=== PATIENT | female | born 1980 | race Hispanic/Latino ===

== ENCOUNTER 2020-01-10 10:59 | Day surgery (SDC) | payer OTHER ==
[2020-01-10] MEDS ORDERED: Ringers Lactate 1,000 ML IV ONE (11:37)
[2020-01-10] MEDS ORDERED: BUPIVACA 0.25%/EPI 0.0005% MDV 50 ML VIAL ONE (11:39)
[2020-01-10] MEDS ORDERED: MIDAZOLAM HCL 2 MG/2 ML INJ ONE (11:55)
[2020-01-10] MEDS ORDERED: propofoL 200 MG/20 ML VIAL IV ONE (11:55)
[2020-01-10] MEDS ORDERED: LIDOCAINE 1% MPF 5 ML VIAL ONE (11:55)
[2020-01-10] MEDS ORDERED: ROCURONIUM 50 MG/5 ML VIAL IV ONE (11:55)
[2020-01-10] MEDS ORDERED: FENTANYL CITR 100 MCG/2 ML ONE ×2 (11:55→12:50)
[2020-01-10] MEDS ORDERED: CEFOXITIN/SWI 2gm 2 GM/20 ML SYR IV ONE (12:00)
[2020-01-10] MEDS ORDERED: dexAMETHasone 10 MG/ML VIAL ONE (12:59)
[2020-01-10] MEDS ORDERED: KETOROLAC 30 MG/ML INJ ONE (12:59)
[2020-01-10] MEDS ORDERED: NA CHLORIDE 0.9% 1,000 ML ONE (13:51)
[2020-01-10] MEDS ORDERED: ONDANSETRON 4 MG/2 ML VIAL ONE (13:54)
[2020-01-10] MEDS ORDERED: GLYCOPYRROLATE 0.2 MG/ML SYR ONE (13:55)
[2020-01-10] MEDS ORDERED: MEPERIDINE HCL 25 MG/ML SYR ONE (14:03)
[2020-01-10] MEDS ORDERED: NEOSTIGMINE 1 MG/ML -5 ML ONE (14:03)
--- NOTE | 2020-01-10 14:08 | P.OP ---
Preoperative diagnosis: Cholecystitis with cholelithiasis Postoperative diagnosis: Cholecystitis with cholelithiasis Primary procedure: Laparoscopic Cholecystectomy Anesthesia: GETA + Local Estimated blood loss: <5cc Specimen: Galllbadder Findings: Grossly inflammed GB, stone impacted in neck, encased in inflammatory rind Complications: None Transferred to: Recovery Room Condition: Good
[2020-01-10] MEDS: HYDROMORPHONE HCL 1 MG/ML INJ ONE ×2 (14:45→14:50)
[2020-01-10] MEDS ORDERED: PROMETHAZINE INJ 25 MG/ML AMP ONE (14:59)
[2020-01-10] MEDS ORDERED: HYDROCODONE/APAP 5/325 MG TAB PO ONE (15:30)
[2020-01-10] MEDS ORDERED: HYDROCODONE/APAP 5/325 MG TAB ONE (15:38)
[2020-01-10 16:17] VITALS: BP 118/73; TEMP 97.5; O2SAT 100
--- NOTE | 2020-01-10 23:58 | OP ---
Date of Procedure: 01/10/2020 Surgeon: Torres De La Cruz MD, Preoperative Diagnosis: Cholecystitis with cholelithiasis. Postoperative Diagnosis: Cholecystitis with cholelithiasis. Procedure Performed: Laparoscopic cholecystectomy. Anesthesia: General endotracheal plus local 0.25% Marcaine with epinephrine. Estimated Blood Loss: Less than 5 mL. Specimen: Gallbladder. Findings: 1.Grossly inflamed gallbladder. 2.Gallbladder encased in inflammatory rind with omentum and attached over the anterior surface. 3.Patient had omental attachments to the anterior abdominal wall and consistent with adhesions from previous surgery. 4.Stone impacted in the gallbladder neck. Complications: None, transferred to recovery room in good condition. Procedure In Detail: After informed consent obtained, patient was brought to the operating room, pre pped and draped in the usual sterile fashion. After adequate anesthesia achieved, supraumbilical are a was anesthetized with 0.25% Marcaine, sharply incised. A 5 mm 0-degree optical trocar was introduc ed in the abdomen without evidence of complication. Insufflation was obtained to 15 mmHg at this ji e. There was no injury to any vital structures upon entry of the abdomen. The gallbladder was inspe cted at this point and found to be completely encased in omentum by visualization. Three additional trocars placed, one in the epigastrium, two in the right upper quadrant. This was similarly anesthet ized and sharply incised. A 5 mm trocars were introduced in the abdomen without evidence of complica tion. The umbilical trocar was then up-sized to a 12 mm under direct visualization without evidence of complication. Patient positioned head up right-side up position. Ratcheted grasper was used to g rasp the patient's omentum and teased off the anterior surface of the gallbladder using a combination of electrocautery and blunt dissection. Careful meticulous dissection was required to take the omen maritza off the gallbladder anterior surface. After this was performed, meticulous dissection was used t o down the Jody pouch where an impacted stone was appreciated in the neck of the gallbladder. Mu ltiple attempts to mobilize the stone were unsuccessful and as such, the gallbladder was decompressed and attempts were slightly improved, but the stone remained in the neck of the gallbladder, but did give a small amount of leeway. At this point, I was able to dissect around the cystic duct and cysti c artery. The critical view of safety was obtained at this point, identifying only 2 structures ente ring the gallbladder. These were identified as the cystic artery. After this was performed, I skraffy tonized these structures clearly and placed double titanium clips on the proximal side and singly on the distal side of both the cystic duct and cystic artery. There was good apposition of the clips at this point and the gallbladder was removed the hepatic fossa without evidence of complication. The gallbladder was then placed into an EndoCatch bag and removed the umbilical trocar, sent off for path ologic examination. The abdomen was then re-insufflated. The area was copiously irrigated multiple times and completely clear and the subhepatic space was irrigated multiple times. This was completel y clear effluent. No evidence of bile leak. No evidence of bleeding. Clips were found to be in goo d anatomic position. The area was inspected. There was a good rim of normal cystic duct on the dist al aspect, as such the patient was positioned back in a neutral position and the remaining of the eff luent was suctioned out over the hepatic space and the umbilical trocar was removed. The umbilical t rocar site was closed using a Irving-Mari suture passer with 0 Vicryl in interrupted fashion. Go od approximation of tissues. The abdomen was completely desufflated under direct visualization witho ut complication. All skin incisions copiously irrigated and closed with a 4-0 Monocryl in a running fashion. Dermabond placed over top. The patient tolerated the procedure well without evidence of co mplication, and transferred to the PACU in good condition. All counts were correct at the end of case. RADHA/JONH Voice ID: [id number] Report ID: [id number]
== END 2020-01-10 16:25 | disposition home or self-care (01) ==
LOC: OR 10:59
PROVIDERS: ATTEND Surgery
PROC: 0FT44ZZ Resection of Gallbladder, Percutaneous Endoscopic Approach (ICD-10-PCS; principal; 2020-01-10 12:00)
DX: K80.10 Calculus of gallbladder with chronic cholecystitis without obstruction (principal); Z11.59 Encounter for screening for other viral diseases
CPT/HCPCS: 81025; 88304; 47562; J2704; J2550; J2250; J3010 ×2; J1100; J2175; J1170; J2710; J0694; J7120; J7030; J2405